=== PATIENT | male | born 2000 | race Caucasian/White ===

== ENCOUNTER 2023-06-08 07:27 | Outpatient (CLI) | payer OTHER ==
--- NOTE | 2023-06-08 14:40 | MRI Report ---
PROCEDURE: KNEE WO - RT INDICATIONS: RIGHT KNEE PAIN TECHNIQUE: Noncontrast sagittal PD fast spin echo and T2 fast spin echo with fat saturation, sagittal 3-D gradie nt sequence with fat saturation; coronal T1 spin echo and PD fast spin echo with fat saturation, and axial PD fast spin echo with fat saturation through the knee. COMPARISON: None. FINDINGS: Image quality: Excellent. Menisci: The medial and lateral menisci demonstrate normal morphology and internal signal. The meni scal root ligaments appear intact. Cruciate ligaments: The anterior and posterior cruciate ligaments appear intact. Medial structures: The medial collateral ligament appears mildly thickened at its femoral insertion. Visualized portions of the pes anserinus tendons appear normal. No abnormal bursal fluid. Lateral structures: There is low-grade proximal lateral collateral ligament sprain/partial thickness tear. The long and short heads of the biceps femoris tendon appear intact. The popliteus tendon appe ars normal; the popliteofibular ligament appears intact. Iliotibial band appears normal. Anterior structures: The quadriceps and patellar tendons appear intact. Patellar alignment is nick l. No femoral trochlear dysplasia or ventral trochlear prominence. No edema in the infrapatellar fa t pad. Bones and cartilage: There is mild marrow edema throughout patella without discrete fracture line. Mi ld marrow edema involving lateral periphery of lateral femoral condyle is also seen. There is low-gra de chondromalacia involving medial facet and apex of patella cartilage. The cartilage in medial and l ateral femoral tibial compartments are intact. Joint space: There is physiologic knee joint fluid. No Glynn's cyst. Normal appearing synovial pli are incidentally noted. IMPRESSION: 1. Contusion involving patellofemoral and lateral periphery of lateral femoral condyle. No fracture o r dislocation. 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 No sign ificant joint effusion. 2. Low to moderate grade proximal LCL sprain/partial thickness tear and low-grade proximal MCL sprain . 3. The cruciate ligaments are intact. 4. No evidence of focal meniscal tear. Reviewed by: Enoc Quintanilla MD on 06/08/2023 2:38 PM PST Approved by: Enoc Quintanilla MD on 06/08/2023 2:38 PM PST Station ID: [id number]
== END 2023-06-08 07:28 | disposition home or self-care (01) ==
LOC: DI 07:27
DX: S80.01XA Contusion of right knee, initial encounter (principal); M22.41 Chondromalacia patellae, right knee; S83.421A Sprain of lateral collateral ligament of right knee, initial encounter; S83.411A Sprain of medial collateral ligament of right knee, initial encounter

== ENCOUNTER 2024-02-14 08:00 | Outpatient (CLI) | payer OTHER | END 2024-02-14 23:59 | disposition home or self-care (01) | LOC: LAB.N 08:00 | PROVIDERS: ATTEND Physician Assistant | DX: J02.9 Acute pharyngitis, unspecified (principal) | CPT/HCPCS: 87070 ==